=== PATIENT | female | born 1980 | race Caucasian/White ===

== ENCOUNTER 2021-05-23 13:57 | Emergency (ER) | payer OTHER ==
[~2021-05-23] VITALS: Ht 154.9 cm; Wt 89.8 kg
[2021-05-23 13:59] VITALS: BP 147/88
--- NOTE | 2021-05-23 14:05 | NUR ---
PT AMBULATED TO LOBBY
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
[2021-05-23] MEDS ORDERED: ACETAMINOPHEN EXTRA STRENGTH 500 MG TAB PO ONE (14:50)
--- NOTE | 2021-05-23 16:28 | NUR ---
Patient taken to CT via wheel chair
[2021-05-23] MEDS ORDERED: CYCLOBENZAPRINE 10 MG TAB PO ONE (17:05)
[2021-05-23] MEDS ORDERED: KETOROLAC 30 MG/ML VIAL IM ONE (17:05)
[2021-05-23] MEDS ORDERED: CYCL-711 PO (17:08)
[2021-05-23] MEDS ORDERED: IBUP-2213 PO (17:08)
[2021-05-23 17:35] VITALS: BP 142/83
--- NOTE | 2021-05-23 17:35 | NUR ---
Patient discharged with v/s stable. Written and verbal after care instructions given and explained. Patient alert, oriented and verbalized understanding of instructions. Ambulatory with steady gait. All questions addressed prior to discharge. ID band removed. Patient advised to follow up with PMD. Rx of Flexeril and Ibuprofen given. Patient educated on indication of medication including possible reaction and side effects. Opportunity to ask questions provided and answered.
== END 2021-05-23 17:35 | disposition home or self-care (01) ==
LOC: MED 13:57
DX: S39.012A Strain of muscle, fascia and tendon of lower back, initial encounter (principal); R51.9 Headache, unspecified; V49.9XXA Car occupant (driver) (passenger) injured in unspecified traffic accident, initial encounter; Y93.89 Activity, other specified; Y92.89 Other specified places as the place of occurrence of the external cause; Y99.8 Other external cause status
CPT/HCPCS: 70450; 96372; 99284; J1885